=== PATIENT | female | born 1980 | race Caucasian/White ===

== ENCOUNTER 2019-05-21 08:10 | Emergency (ER) | payer BC ==
[~2019-05-21] VITALS: Ht 154.9 cm; Wt 59.4 kg
[2019-05-21 08:17] VITALS: Ht 154.9 cm; Wt 59.4 kg
[2019-05-21 10:20] VITALS: BP 113/64
== END 2019-05-21 10:20 | disposition home or self-care (01) ==
LOC: ED 08:10
DX: J04.0 Acute laryngitis (principal); F41.9 Anxiety disorder, unspecified
CPT/HCPCS: J7512